=== PATIENT | male | born 1980 ===

== ENCOUNTER 2024-05-26 14:11 | Emergency (ER) | payer OTHER, SELFPAY ==
[2024-05-26 14:19] VITALS: BP 127/76; PULSE 89; RESP 22; TEMP 36.9; O2SAT 96; BMI 34.9
--- NOTE | 2024-05-26 14:30 | CRLHL7_ITS ---
For Patients: As a result of the Century Cures Act, medical imaging exams and procedure reports are released immediately into your electronic medical record. You may view this report before your referring provider. If you have questions, please contact your health care provider. INDICATION: Right upper quadrant pain. COMPARISON: None. FINDINGS: Echogenic liver. Patent IVC. Pancreas obscured by bowel gas. Liver size is mildly enlarged at 19 cm. Gallbladder sonographically normal. No sonographic Moreno sign reported. No filling defects. Common bile duct 3 mm at the jevon hepatis. No ascites. Right kidney 11.5 cm in length and sonographically unremarkable were visualized. IMPRESSION: Mild hepatomegaly. Steatosis. Dictated by Maxwell Faulkner MD @ 05/26/2024 4:31:34 PM (Electronically Signed)
[2024-05-26 14:47] LABS: Lactate* 1.9 mmol/L (0.5-1.9)
[2024-05-26 14:48] LABS: Basophils Absolute Auto 0.02 K/uL (0.00-0.30); Basophils Percent Auto 0.3 % (0.0-3.0); Eosinophils Absolute Auto 0.13 K/uL (0.00-0.50); Hematocrit 46.5 % (37.0-53.0); Hemoglobin* 15.4 gm/dL (13.5-17.5); Immature Granulocytes Abs Auto 0.08 K/uL (0.00-0.30); Immature Granulocytes Pct Auto 1.2 %; Lymphocytes Absolute Auto 1.66 K/uL (0.90-2.90); Lymphocytes Percent Auto 25.4 % (20-44); Mean Corpuscular HGB Conc 33 gm/dL (32-36); Mean Corpuscular Hemoglobin 30 pg (26-34); Mean Corpuscular Volume 90 fL (80-100); Neutrophils Absolute Auto 4.05 K/uL (1.7-7.0); Neutrophils Percent Auto 62.1 % (42.0-72.0); Platelet Count* 194 K/uL (140-440); RDW Coefficient of Variation % 13.2 % (11.5-15.5); Red Blood Count 5.15 m/uL (4.30-5.90); White Blood Count* 6.53 K/uL (4.50-11.00)
[2024-05-26 14:51] LABS: Slide Review Reflex No
--- NOTE | 2024-05-26 14:51 | ED.GENADULT ---
HPI - General Adult General Chief complaint: Abdominal Pain Stated complaint: R side pain Time Seen by Provider: 05/26/24 14:14 Source: patient Mode of arrival: ambulatory Limitations: no limitations History of Present Illness HPI narrative: [age] year male presenting today with right upper quadrant pain. Pain started approximately 4 hours ago. Has been constant in the last 1 hour. He denies any nausea or vomiting. No fevers or chills. He has not eaten since the pain started. He does state that he had a lot to drink last night, states that he drinks on the weekends but not during the week. The pain is constant. Radiates into the right mid back. He denies any urinary symptoms such as increased frequency, dysuria or increased urgency. He denies any diarrhea or constipation. Last bowel movement was this morning and was normal. He denies chest pain. He denies feeling short of breath. Past medical history again for GERD, he takes Nexium. Past surgical history significant for appendectomy. Related Data Home Medications ?Medication ?Instructions ?Recorded ?Confirmed No Known Home Medications 05/26/24 05/26/24 Allergies Allergy/AdvReac Type Severity Reaction Status Date / Time No Known Drug Allergies Allergy Verified 05/26/24 14:18 Review of Systems Status of ROS: Reports: 10 or more systems reviewed and unremarkable except as noted in History and below PFSH PFS Social History Smoking Status: Current every day smoker Do you use any of these nicotine containing products: None Second hand tobacco smoke exposure: No How often do you have a drink containing alcohol: 4 or more times a week How many standard drinks containing alcohol do you have on a typical day: 3 or 4 How often do you have six or more drinks on one occasion: Daily or almost daily AUDIT-C Alcohol total score: 9 Non-prescribed substance use: denies use Exam Narrative: Exam Narrative: Well-nourished well-developed patient in no acute distress. Alert and oriented. Answers questions appropriately. Mood and affect are appropriate. Thoughts are goal oriented and rational. No tangential or magical thinking noted. Patient speaks in full sentences without needing to catch his breath. HEENT: Normocephalic atraumatic. Pupils are equally round reactive to light. Extraocular muscles are intact. Conjunctivae are moist without any icterus noted. Moist mucous membranes. Posterior pharynx is normal. Neck is soft. Cardiovascular: Heart is regular rate and rhythm S1 and S2 are present without any murmurs. Lungs: Clear to auscultation bilaterally no wheezes rhonchi or rales are appreciated. Patient takes deep breaths without any discomfort. Abdomen: Soft and nondistended with hyperactive bowel sounds. Patient has right upper quadrant tenderness with a positive Moreno sign- patient does indeed catch his breath when he takes deep breaths with pressure in the right upper quadrant. This is reproduced twice. No CVA tenderness. No back pain with palpation. No epigastric pain. Extremities: Bilateral lower extremities are without edema. Skin: Well perfused. Const: Vital Signs, click to edit/add: Vital Signs - 24 hr 05/26/24 14:19 Temperature 98.4 F Pulse Rate [Pulse Oximeter] 89 Respiratory Rate 22 Blood Pressure [Ri ght Upper Arm] 127/76 Pulse Oximetry 96 Oxygen Delivery Me thod Room Air Course Course ED Course: IV is established and labs were drawn. Cbc is normal. Normal lactate. Chemistries are unremarkable. Random glucose 145. LFTs mildly elevated. Normal CRP. Normal lipase. Ultrasound: Unremarkable. Patient was given famotidine while he was here. Vital Signs Vital signs: Initial Vital Signs Temperature 98.4 F 05/26/24 14:19 Temperature Source Temporal Artery Scan 05/26/24 14:19 Pulse Rate 89 05/26/24 14:19 Pulse Rhythm Regular 05/26/24 14:19 Respiratory Rate 22 05/26/24 14:19 Blood Pressure 127/76 05/26/24 14:19 Blood Pressure Mean 93 05/26/24 14:19 Blood Pressure Position Supine 05/26/24 14:19 Pulse Oximetry 96 05/26/24 14:19 Oxygen Delivery Method Room Air 05/26/24 14:19 Vital Signs Temperature 98.4 F 05/26/24 14:19 Pulse Rate 89 05/26/24 14:19 Respiratory Rate 22 05/26/24 14:19 Blood Pressure 127/76 05/26/24 14:19 Pulse Oximetry 96 05/26/24 14:19 Oxygen Delivery Method Room Air 05/26/24 14:19 Temperature 98.4 F 05/26/24 14:19 Pulse Rate 89 05/26/24 14:19 Respiratory Rate 22 05/26/24 14:19 Blood Pressure 127/76 05/26/24 14:19 Pulse Oximetry 96 05/26/24 14:19 Oxygen Delivery Method Room Air 05/26/24 14:19 Medications Administered Medications: Discontinued Medications Generic Name Dose Route Start Last Admin Trade Name Shiraz PRN Reason Stop Dose Admin Famotidine 20 mg 05/26/24 16:11 05/26/24 16:36 Famotidine 20 Mg Tablet PO 05/26/24 16:12 20 mg ONCE ONE Administration Medical Decision Making MDM Narrative Medical decision making narrative: 43-year-old male with abdominal pain, unclear etiology. Stop talked about gastritis, peptic ulcer disease. We discussed cutting back on alcohol use, using famotidine as needed, continuing Nexium. Return to ER if getting worse. Lab Data Lab results reviewed: Yes I reviewed the patient's lab results Labs: Lab Results 05/26/24 Range/Units 14:40 WBC 6.53 (4.50-11.00) K/uL RBC 5.15 (4.30-5.90) m/uL Hgb 15.4 (13.5-17.5) gm/dL Hct 46.5 (37.0-53.0) % MCV 90 (80-100) fL MCH 30 (26-34) pg MCHC 33 (32-36) gm/dL RDW Coeff of Kp 13.2 (11.5-15.5) % Plt Count 194 (140-440) K/uL Neut % (Auto) 62.1 (42.0-72.0) % Lymph % (Auto) 25.4 (20-44) % [place] % (Auto) 9.0 (0.0-11.0) % Eos % (Auto) 2.0 (0.0-7.0) % Baso % (Auto) 0.3 (0.0-3.0) % Neut # (Auto) 4.05 (1.7-7.0) K/uL Lymph # (Auto) 1.66 (0.90-2.90) K/uL [place] # (Auto) 0.60 (0.00-0.90) K/UL Eos # (Auto) 0.13 (0.00-0.50) K/uL Baso # (Auto) 0.02 (0.00-0.30) K/uL Abs Immat Gran (auto) 0.08 (0.00-0.30) K/uL Imm/Tot Granulo (auto) 1.2 % Sodium 137 (135-149) mmol/L Potassium 3.7 (3.6-5.1) mmol/L Chloride 108 (96-114) mmol/L Carbon Dioxide 24 (20-32) mmol/L Anion Gap 5 L (7-15) mEq/L BUN 14 (5-24) mg/dL Creatinine 0.8 (0.5-1.5) mg/dL Estimated Creat Clear 101.43 Estimated GFR 111 ml/min Glucose 145 H (60-115) mg/dL Lactate 1.9 (0.5-1.9) mmol/L Calcium 8.8 (8.4-10.6) mg/dL Total Bilirubin 0.5 (0.1-1.5) mg/dL Direct Bilirubin 0.3 (0.0-0.5) mg/dL AST 51 H (12-35) U/L ALT 60 H (4-50) U/L Alkaline Phosphatase 98 (40-150) U/L C-Reactive Protein < 0.5 L (0.5-1.0) mg/dL Total Protein 7.0 (6.0-8.3) g/dL Albumin 4.3 (3.3-5.0) g/dL Lipase 109 (23-300) U/L Imaging Data US - abdomen: Attestation: I have reviewed the pertinent imaging results. Radiologist's impression: FINDINGS: Echogenic liver. Patent IVC. Pancreas obscured by bowel gas. Liver size is mildly enlarged at 19 cm. Gallbladder sonographically normal. No sonographic Moreno sign reported. No filling defects. Common bile duct 3 mm at the jevon hepatis. No ascites. Right kidney 11.5 cm in length and sonographically unremarkable were visualized. IMPRESSION: Mild hepatomegaly. Steatosis. Discharge Plan Discharge Clinical Impression: Abdominal pain Patient Disposition: Home, Self-Care Condition: Stable Additional Instructions: Decrease alcohol use. Increase water for the next several days. Continue taking Nexium daily, can also take a daily Zantac to help with discomfort. Follow-up with your primary care provider this coming week- recommend you speak to them about getting a HIDA scan done which is a test for your gallbladder. Return to the emergency room if you feel like you are getting worse. Prescriptions: No Action No Known Home Medications Follow Up/Referrals: Provider,Not a Local [Primary Care Provider] - Stand Alone Forms: [employer] Info Instructions
[2024-05-26 15:12] LABS: Albumin* 4.3 g/dL (3.3-5.0); Chloride* 108 mmol/L (96-114); Sodium* 137 mmol/L (135-149)
[2024-05-26 15:13] LABS: Potassium* 3.7 mmol/L (3.6-5.1)
[2024-05-26 15:15] LABS: Creatinine* 0.8 mg/dL (0.5-1.5); Est. Creatinine Clearance* 101.43; Estimated Glomerular Filt Rate 111 ml/min
[2024-05-26 15:16] LABS: Alanine Aminotransferase* 60 U/L (4-50); Alkaline Phosphatase* 98 U/L (40-150); Anion Gap 5 mEq/L (7-15); Aspartate Amino Transferase* 51 U/L (12-35); Bilirubin Direct* 0.3 mg/dL (0.0-0.5); Bilirubin Total* 0.5 mg/dL (0.1-1.5); Blood Urea Nitrogen* 14 mg/dL (5-24); Calcium* 8.8 mg/dL (8.4-10.6); Carbon Dioxide* 24 mmol/L (20-32); Glucose* 145 mg/dL (60-115); Lipase* 109 U/L (23-300)
[2024-05-26 15:26] LABS: C Reactive Protein* < 0.5 mg/dL (0.5-1.0)
[2024-05-26] MEDS: FAMOTIDINE 20 MG TABLET PO (16:36)
== END 2024-05-26 17:12 | disposition home or self-care (01) ==
PROVIDERS: Emergency Provider Family Medicine
DX: R10.9 Unspecified abdominal pain (principal)
CPT/HCPCS: 36415; 76705; 80048; 80076; 83605; 83690; 85025; 86140; 99283; 99284; A9270